=== PATIENT | male | born 1930 | race Caucasian/White ===

== ENCOUNTER 2019-04-01 08:11 | Emergency (ER) | payer MEDICARE ==
[~2019-04-01] VITALS: Ht 180.3 cm; Wt 77.3 kg
[2019-04-01 08:17] VITALS: BP 164/88; PULSE 88; RESP 16; Ht 180.3 cm; Wt 77.3 kg
--- NOTE | 2019-04-01 10:01 | ERD ---
ER Documentation Chief Complaint Chief Complaint FALL OUT OF BED WITH ABRASION TO LEFT CHEEK HPI Patient is a 88-year-old male with no medical problems who presents for a fall. Please note the history and physical exam is limited secondary to the patient's dementia. The patient is a poor historian. The patient came from a nursing facility. The patient fell and has an abrasion of the left side of the face. He does not recall what happened. Upon review of old medical records this is the patient's first visit to the emergency department. ROS All systems reviewed and are negative except as per history of present illness. PMhx/Soc Medical and Surgical Hx: Unable to obtain History of Surgery: No Anesthesia Reaction: No Hx Neurological Disorder: No Hx Respiratory Disorders: No Hx Cardiac Disorders: No Hx Psychiatric Problems: Yes (Dementia) Hx Miscellaneous Medical Probl: No Hx Alcohol Use: No Hx Substance Use: No Hx Tobacco Use: No Smoking Status: Unknown if ever smoked FmHx Unable to obtain Physical Exam Vitals Vital Signs Date Temp Pulse Resp B/P (MAP) Pulse Ox O2 O2 Flow FiO2 Time Delivery Rate 04/01/19 97.6 88 16 164/88 97 08:17 (113) Physical Exam Const: No acute distress Head: Abrasion to left face Eyes: Normal Conjunctiva ENT: Normal External Ears, Nose and Mouth. Neck: Full range of motion. No meningismus. Resp: Clear to auscultation bilaterally Cardio: Regular rate and rhythm, no murmurs Abd: Soft, non tender, non distended. Normal bowel sounds Skin: No petechiae or rashes Back: No midline or flank tenderness Ext: No cyanosis, or edema Neur: Awake and demented at baseline, moves all 4 extremities Procedures/MDM CT head shows no skull fracture or bleed per radiology. CT cervical spine shows no fracture per radiology. Laceration Repair by me: Anesthesia: None required Location: Left face Tendon/Joint/Nerves: No injury Foreign body: None detected after copious irrigation and exploration Technique: Dermabond Complexity: No subcutaneous sutures/mucosal repair/edge excision Post Closure Length: 2 cm Patient's bleeding was easily controlled in the department and there is no indication of anemia. No evidence of compartment syndrome, neurologic injury, vascular injury, open joint, tendon laceration, or foreign body. Patient is appropriate for outpatient follow up. 48 hour wound check. Scar minimization instructions given. Departure Diagnosis: Primary Impression: Abrasion Additional Impression: Fall Encounter type: initial encounter Qualified Codes: W19.XXXA - Unspecified fall, initial encounter Condition: Fair Patient Instructions: Abrasion, Fall, Uncertain Cause Referrals: Your doctor Additional Instructions: Call your primary care doctor TOMORROW for an appointment during the next 1 WEEK.Tell the pathology secretary that you were referred from this facility.See the doctor sooner or return here if your condition worsens before your appointment time. RADHA MACKENZIE MD Apr 01, 2019 10:01
== END 2019-04-01 12:20 | disposition home or self-care (01) ==
LOC: E/R 08:11
DX: S01.81XA Laceration without foreign body of other part of head, initial encounter (principal); W18.39XA Other fall on same level, initial encounter; Y92.9 Unspecified place or not applicable
CPT/HCPCS: 70450; 72125